=== PATIENT | female | born 1945 | race Caucasian/White ===

== ENCOUNTER 2017-01-10 16:28 | Inpatient (IN) | payer MEDICARE, OTHER ==
[~2017-01-10] VITALS: Ht 160 cm; Wt 80.6 kg
[~2017-01-10 16:28] MED LIST: ALLO300T PO; AMLO10TA2 PO; ATOR40TA78 PO; BENA1TAB11 PO; CEFD300C2 PO; LEVO112T25 PO; METF100010 PO; METO200T3 PO; METR500T PO; ONDA4TAB10 PO; PIOG30TA4 PO; SITA100T PO; SULF1TAB24 PO
[2017-01-10] MEDS ORDERED: DIPH,PERTUSS(ACELL),TET VAC/PF 0.5 ML IM-VACC ONE ×2 (17:00→19:13)
[2017-01-10 17:35] LABS: HEMOGLOBIN 9.3 g/dL (11.7-16.4)
[2017-01-10 17:44] LABS: BLOOD UREA NITROGEN 26 mg/dL (7-18)
[2017-01-10] MEDS ORDERED: PIPERACILLIN/TAZO/PMX 3.375GM 50 ML IVPB ONE (19:00)
[2017-01-10] MEDS ORDERED: HYDROcodone/APAP 5/325 TABLET PO ONE (19:00)
[2017-01-10] MEDS ORDERED: VANCOMYCIN 1,500 MG in SODIUM CHLORIDE 0.9% 250 ML IV ONE (19:00)
[2017-01-10] MEDS ORDERED: VANCOMYCIN PER PHARMACY IV ONE (19:00)
[2017-01-10] MEDS ORDERED: SODIUM CHLORIDE FLUSH 10ML SYR IVF ONE (19:00)
[2017-01-10] MEDS ORDERED: PHARMACOKINETIC CONSULTATION MC ONE (19:00)
[2017-01-10] MEDS ORDERED: PIPERACILLIN/TAZO/PMX 3.375GM 50 ML ONE (19:12)
[2017-01-10] MEDS ORDERED: HYDROcodone/APAP 5/325 TABLET ONE (19:12)
[2017-01-10 21:55] VITALS: BP 115/67
[2017-01-10] MEDS ORDERED: POLYETHYLENE GLYCOL 17 GM PACKET PO PRN (23:30)
[2017-01-10] MEDS ORDERED: LABETALOL 5MG/ML, 20ML IV PRN (23:30)
[2017-01-10] MEDS ORDERED: DOCUSATE 100 MG CAPSULE PO PRN (23:30)
[2017-01-10] MEDS ORDERED: VANCOMYCIN PER PHARMACY MC PRN (23:30)
[2017-01-10] MEDS ORDERED: ACETAMINOPHEN 325 MG TABLET PO PRN (23:30)
[2017-01-10] MEDS ORDERED: ONDANSETRON ODT 4 MG PO PRN (23:30)
[2017-01-10] MEDS ORDERED: BISACODYL 10 MG SUPP PR PRN (23:30)
[2017-01-11] VITALS (13 sets, daily range): BP systolic 84–127; BP diastolic 43–73
[2017-01-11] MEDS: ATORVASTATIN 40 MG TABLET PO SCH ×2 (00:18→21:21)
[2017-01-11] MEDS: PIPERACILLIN/TAZO/PMX 3.375GM 50 ML IV SCH ×4 (00:18→19:46)
[2017-01-11] MEDS: ENOXAPARIN 40 MG/0.4 ML SQ SCH ×2 (00:19→23:01)
[2017-01-11] MEDS: HYDROcodone/APAP 5/325 TABLET PO PRN ×4 (01:38→21:20)
[2017-01-11] MEDS ORDERED: PHARMACOKINETIC CONSULTATION MC ONE (02:30)
[2017-01-11] MEDS ORDERED: PHARMACOKINETIC MONITORING MC PRN (02:30)
[2017-01-11 04:53] LABS: HEMOGLOBIN 7.9 g/dL (11.7-16.4)
[2017-01-11 05:20] LABS: ASPARTATE AMINO TRANSFERASE 21 U/L (15-37); BLOOD UREA NITROGEN 22 mg/dL (7-18)
[2017-01-11] MEDS: INSULIN ASPART 100 UNITS/ML, PEN SQ-INSULIN SCH ×4 (07:00→21:56)
[2017-01-11] MEDS: FUROSEMIDE 20 MG TABLET PO SCH ×2 (08:26→17:00)
[2017-01-11] MEDS: PIOGLITAZONE 15 MG TABLET PO SCH (08:26)
[2017-01-11] MEDS: ALLOPURINOL 300 MG TABLET PO SCH (08:27)
[2017-01-11] MEDS: AMLODIPINE 5 MG TABLET PO SCH (08:27)
[2017-01-11] MEDS: SITAGLIPTIN 100MG TABLET PO SCH (08:27)
[2017-01-11] MEDS: HYDROCHLOROTHIAZIDE 25 MG TABLET PO SCH (08:32)
[2017-01-11] MEDS: BENAZEPRIL 20 MG TABLET PO SCH (08:32)
[2017-01-11] MEDS: METOPROLOL SUCCINATE 50 MG TAB.ER.24H PO SCH ×2 (08:32→21:00)
[2017-01-11] MEDS ORDERED: LEVOTHYROXINE 112 MCG TABLET PO SCH (09:00)
[2017-01-11] MEDS ORDERED: GADOBUTROL 7.5 MMOL/7.5 ML PFS ONE (10:27)
[2017-01-11] MEDS ORDERED: HYDROcodone/APAP 5/325 TABLET ONE (14:54)
[2017-01-11] MEDS ORDERED: LABETALOL 5MG/ML, 20ML IV PRN (20:55)
[2017-01-11] MEDS: VANCOMYCIN 1,500 MG in SODIUM CHLORIDE 0.9% 250 ML IV SCH (21:20)
[2017-01-11] MEDS: TRAZODONE 50MG TABLET PO PRN (23:00)
[2017-01-12 01:00] VITALS: BP 110/65
[2017-01-12 01:06] VITALS: BP 110/65
[2017-01-12] MEDS: PIPERACILLIN/TAZO/PMX 3.375GM 50 ML IV SCH ×4 (01:24→21:46)
[2017-01-12] MEDS: HYDROcodone/APAP 5/325 TABLET PO PRN ×3 (04:28→21:47)
[2017-01-12 05:09] LABS: BLOOD UREA NITROGEN 16 mg/dL (7-18)
[2017-01-12] MEDS: INSULIN ASPART 100 UNITS/ML, PEN SQ-INSULIN SCH ×4 (07:00→21:00)
[2017-01-12 07:38] VITALS: BP 110/67
[2017-01-12] MEDS: FUROSEMIDE 20 MG TABLET PO SCH ×2 (08:05→16:20)
[2017-01-12] MEDS: PIOGLITAZONE 15 MG TABLET PO SCH (08:07)
[2017-01-12] MEDS: HYDROCHLOROTHIAZIDE 25 MG TABLET PO SCH (08:07)
[2017-01-12] MEDS: SITAGLIPTIN 100MG TABLET PO SCH (08:08)
[2017-01-12] MEDS: ALLOPURINOL 300 MG TABLET PO SCH (08:08)
[2017-01-12] MEDS: METOPROLOL SUCCINATE 50 MG TAB.ER.24H PO SCH ×2 (08:09→21:00)
[2017-01-12] MEDS: BENAZEPRIL 20 MG TABLET PO SCH (08:12)
[2017-01-12] MEDS ORDERED: LEVOTHYROXINE 150 MCG TABLET PO SCH (09:00)
[2017-01-12] MEDS: AMLODIPINE 5 MG TABLET PO SCH (09:19)
[2017-01-12 13:39] VITALS: BP 138/72
[2017-01-12 19:58] VITALS: BP 116/70
[2017-01-12] MEDS: VANCOMYCIN 1,500 MG in SODIUM CHLORIDE 0.9% 250 ML IV SCH (21:45)
[2017-01-12] MEDS: ENOXAPARIN 40 MG/0.4 ML SQ SCH (21:46)
[2017-01-12] MEDS: ATORVASTATIN 40 MG TABLET PO SCH (21:46)
[2017-01-12] MEDS: TRAZODONE 50MG TABLET PO PRN (22:01)
[2017-01-13 03:06] VITALS: BP_SYST 110; BP_SYST 112; BP_DIAS 66
[2017-01-13] MEDS: PIPERACILLIN/TAZO/PMX 3.375GM 50 ML IV SCH ×3 (03:31→16:48)
[2017-01-13] MEDS: HYDROcodone/APAP 5/325 TABLET PO PRN ×3 (06:33→20:19)
[2017-01-13] MEDS: LEVOTHYROXINE 150 MCG TABLET PO SCH (06:33)
[2017-01-13] MEDS: INSULIN ASPART 100 UNITS/ML, PEN SQ-INSULIN SCH ×4 (07:00→20:23)
[2017-01-13 08:56] VITALS: BP 98/62
[2017-01-13] MEDS: PIOGLITAZONE 15 MG TABLET PO SCH (09:00)
[2017-01-13] MEDS: ALLOPURINOL 300 MG TABLET PO SCH (09:02)
[2017-01-13] MEDS: SITAGLIPTIN 100MG TABLET PO SCH (09:02)
[2017-01-13] MEDS ORDERED: FUROSEMIDE 20 MG TABLET PO SCH (17:00)
[2017-01-13 17:01] VITALS: BP 90/47
[2017-01-13] MEDS ORDERED: SODIUM CHLORIDE 0.9%, 500ML IVBOLUS ONE (18:00)
[2017-01-13 20:18] VITALS: BP 96/51
[2017-01-13] MEDS: VANCOMYCIN 1,500 MG in SODIUM CHLORIDE 0.9% 250 ML IV SCH (20:19)
[2017-01-13] MEDS: ATORVASTATIN 40 MG TABLET PO SCH (20:19)
[2017-01-13] MEDS: ENOXAPARIN 40 MG/0.4 ML SQ SCH (20:20)
[2017-01-13] MEDS ORDERED: METOPROLOL SUCCINATE 50 MG TAB.ER.24H PO SCH (21:00)
[2017-01-14 04:40] LABS: HEMOGLOBIN 10.4 g/dL (11.7-16.4)
[2017-01-14 04:54] LABS: BLOOD UREA NITROGEN 17 mg/dL (7-18)
[2017-01-14 04:55] VITALS: BP 110/59
[2017-01-14] MEDS: LEVOTHYROXINE 150 MCG TABLET PO SCH (06:16)
[2017-01-14] MEDS: HYDROcodone/APAP 5/325 TABLET PO PRN ×2 (06:16→22:09)
[2017-01-14] MEDS: INSULIN ASPART 100 UNITS/ML, PEN SQ-INSULIN SCH ×4 (07:00→21:00)
[2017-01-14 07:40] VITALS: BP 110/53
[2017-01-14] MEDS ORDERED: MAGNESIUM SULFATE PMX 4GM/100M 100 ML IV ONE (08:30)
[2017-01-14] MEDS: SITAGLIPTIN 100MG TABLET PO SCH (08:38)
[2017-01-14] MEDS: PIOGLITAZONE 15 MG TABLET PO SCH (08:38)
[2017-01-14] MEDS: ALLOPURINOL 300 MG TABLET PO SCH (08:39)
[2017-01-14] MEDS: METOPROLOL SUCCINATE 100 MG TAB.ER.24H PO SCH (09:00)
[2017-01-14] MEDS: HYDROCHLOROTHIAZIDE 25 MG TABLET PO SCH (09:00)
[2017-01-14] MEDS: BENAZEPRIL 20 MG TABLET PO SCH (09:00)
[2017-01-14] MEDS: AMLODIPINE 5 MG TABLET PO SCH (09:00)
[2017-01-14 14:24] VITALS: BP 110/59
[2017-01-14] MEDS: MORPHINE SULFATE 4 MG/ML, 1ML IVPush PRN (14:53)
[2017-01-14] MEDS ORDERED: PROPOFOL 10 MG/ML, 20ML ONE (18:32)
[2017-01-14] MEDS ORDERED: ONDANSETRON 2MG/ML, 2ML ONE (18:32)
[2017-01-14] MEDS ORDERED: FENTANYL PF 250 MCG/5ML ONE ×2 (18:38→18:39)
[2017-01-14] MEDS ORDERED: MIDAZOLAM 1 MG/ML, 2ML ONE (18:38)
[2017-01-14] MEDS ORDERED: BUPIVACAINE/PF 0.5% ONE (18:44)
[2017-01-14] MEDS ORDERED: OXYcodone 5 MG/5 ML ORAL.SOL UDC ONE (19:41)
[2017-01-14 19:46] VITALS: BP 114/62
[2017-01-14] MEDS ORDERED: OXYcodone 5 MG/5 ML ORAL.SOL UDC PO PRN (20:00)
[2017-01-14] MEDS: VANCOMYCIN 1,500 MG in SODIUM CHLORIDE 0.9% 250 ML IV SCH (21:27)
[2017-01-14] MEDS: ATORVASTATIN 40 MG TABLET PO SCH (22:09)
[2017-01-15] MEDS: MORPHINE SULFATE 4 MG/ML, 1ML IVPush PRN ×4 (00:18→19:55)
[2017-01-15 01:49] VITALS: BP 120/64
[2017-01-15] MEDS: HYDROcodone/APAP 5/325 TABLET PO PRN ×4 (04:56→22:59)
[2017-01-15] MEDS: LEVOTHYROXINE 150 MCG TABLET PO SCH (04:56)
[2017-01-15] MEDS: ENOXAPARIN 40 MG/0.4 ML SQ SCH (04:58)
[2017-01-15 05:08] LABS: HEMOGLOBIN 10.5 g/dL (11.7-16.4)
[2017-01-15 05:31] LABS: BLOOD UREA NITROGEN 10 mg/dL (7-18)
[2017-01-15 07:35] VITALS: BP 116/67
[2017-01-15] MEDS: INSULIN ASPART 100 UNITS/ML, PEN SQ-INSULIN SCH ×4 (07:38→21:00)
[2017-01-15] MEDS: PIOGLITAZONE 15 MG TABLET PO SCH (09:46)
[2017-01-15] MEDS: HYDROCHLOROTHIAZIDE 25 MG TABLET PO SCH (09:46)
[2017-01-15] MEDS: SITAGLIPTIN 100MG TABLET PO SCH (09:47)
[2017-01-15] MEDS: AMLODIPINE 5 MG TABLET PO SCH (09:47)
[2017-01-15] MEDS: METOPROLOL SUCCINATE 100 MG TAB.ER.24H PO SCH (09:47)
[2017-01-15] MEDS: ALLOPURINOL 300 MG TABLET PO SCH (09:48)
[2017-01-15] MEDS: BENAZEPRIL 20 MG TABLET PO SCH (09:48)
[2017-01-15] MEDS ORDERED: DAPTOMYCIN IVPB SCH (11:30)
[2017-01-15] MEDS ORDERED: SODIUM CHLORIDE 0.9% IVPB SCH (11:30)
[2017-01-15 13:13] VITALS: BP 91/49
[2017-01-15 19:43] VITALS: BP 101/39
[2017-01-15 19:53] VITALS: BP 98/58
[2017-01-16 03:49] VITALS: BP 115/55
[2017-01-16 04:29] LABS: HEMOGLOBIN 10.4 g/dL (11.7-16.4)
[2017-01-16 04:38] LABS: BLOOD UREA NITROGEN 17 mg/dL (7-18)
[2017-01-16 04:42] LABS: ASPARTATE AMINO TRANSFERASE 16 U/L (15-37)
[2017-01-16 04:48] LABS: DIFF TOTAL CELLS COUNTED 100 CELL DIFF
[2017-01-16 04:50] LABS: ANISOCYTOSIS 1+; OVALOCYTES 1+; POLYCHROMASIA 1+
[2017-01-16 04:51] LABS: VERIFY COUNTS? YES
[2017-01-16] MEDS: LEVOTHYROXINE 150 MCG TABLET PO SCH (06:02)
[2017-01-16] MEDS: MORPHINE SULFATE 4 MG/ML, 1ML IVPush PRN (06:23)
[2017-01-16] MEDS: INSULIN ASPART 100 UNITS/ML, PEN SQ-INSULIN SCH ×4 (07:00→20:43)
[2017-01-16 07:15] VITALS: BP 104/53
[2017-01-16] MEDS ORDERED: LIDOCAINE 2%, 20ML ONE (08:48)
[2017-01-16] MEDS: PIOGLITAZONE 15 MG TABLET PO SCH (09:00)
[2017-01-16] MEDS: HYDROCHLOROTHIAZIDE 25 MG TABLET PO SCH (09:00)
[2017-01-16] MEDS: SITAGLIPTIN 100MG TABLET PO SCH (09:00)
[2017-01-16] MEDS: AMLODIPINE 5 MG TABLET PO SCH (09:00)
[2017-01-16] MEDS: ALLOPURINOL 300 MG TABLET PO SCH (09:00)
[2017-01-16] MEDS: METOPROLOL SUCCINATE 100 MG TAB.ER.24H PO SCH (09:00)
[2017-01-16] MEDS: BENAZEPRIL 20 MG TABLET PO SCH (09:00)
[2017-01-16] MEDS ORDERED: MIDAZOLAM 1 MG/ML, 5ML ONE (09:06)
[2017-01-16] MEDS ORDERED: FENTANYL PF 100 MCG/2ML ONE (09:07)
[2017-01-16] MEDS ORDERED: FLUMAZENIL 0.1 MG/1 ML, 5ML ONE (09:07)
[2017-01-16] MEDS ORDERED: NALOXONE 1 MG/ML, 2ML ONE (09:07)
[2017-01-16 10:20] VITALS: BP 108/57
[2017-01-16] MEDS: HYDROcodone/APAP 5/325 TABLET PO PRN ×3 (10:29→20:43)
[2017-01-16] MEDS: DAPTOMYCIN 500 MG in SODIUM CHLORIDE 0.9% 100 ML IVPB SCH (13:30)
[2017-01-16 14:15] VITALS: BP 105/54
[2017-01-16] MEDS: ENOXAPARIN 40 MG/0.4 ML SQ SCH (14:48)
[2017-01-16 19:32] VITALS: BP 115/59
[2017-01-17 03:15] VITALS: BP 126/62
[2017-01-17] MEDS: LEVOTHYROXINE 150 MCG TABLET PO SCH (05:51)
[2017-01-17] MEDS: HYDROcodone/APAP 5/325 TABLET PO PRN (05:51)
[2017-01-17] MEDS ORDERED: METO-95 PO (06:35)
[2017-01-17] MEDS ORDERED: DAPT500V6 IV (06:35)
[2017-01-17] MEDS: INSULIN ASPART 100 UNITS/ML, PEN SQ-INSULIN SCH ×2 (07:00→11:00)
[2017-01-17 07:16] VITALS: BP 121/62
[2017-01-17] MEDS: ALLOPURINOL 300 MG TABLET PO SCH (08:58)
[2017-01-17] MEDS: SITAGLIPTIN 100MG TABLET PO SCH (08:58)
[2017-01-17] MEDS: METOPROLOL SUCCINATE 100 MG TAB.ER.24H PO SCH (08:58)
[2017-01-17] MEDS: AMLODIPINE 5 MG TABLET PO SCH (08:59)
[2017-01-17] MEDS: HYDROCHLOROTHIAZIDE 25 MG TABLET PO SCH (09:00)
[2017-01-17] MEDS: PIOGLITAZONE 15 MG TABLET PO SCH (09:02)
[2017-01-17] MEDS: BENAZEPRIL 20 MG TABLET PO SCH (09:02)
[2017-01-17] MEDS ORDERED: LEVO125T5 PO (10:23)
[2017-01-17] MEDS ORDERED: DAPTOMYCIN 500 MG in SODIUM CHLORIDE 0.9% 100 ML IVPB SCH (11:30)
[2017-01-17] MEDS: DAPTOMYCIN 500 MG in SODIUM CHLORIDE 0.9% 100 ML IVPB SCH (12:04)
[2017-01-17 12:48] VITALS: BP 106/46
== END 2017-01-17 13:40 | disposition home health service (06) | DRG 616 ==
LOC: ED 19:04 → EDIP 20:20 → 3NW 21:49
PROVIDERS: ADMIT Internal Medicine; ATTEND Internal Medicine
PROC: 30233N1 Transfusion of Nonautologous Red Blood Cells into Peripheral Vein, Percutaneous Approach (ICD-10-PCS; 2017-01-11)
PROC: 0Y6P0Z1 Detachment at Right 1st Toe, High, Open Approach (ICD-10-PCS; principal; 2017-01-14 18:30)
PROC: 02HV33Z Insertion of Infusion Device into Superior Vena Cava, Percutaneous Approach (ICD-10-PCS; 2017-01-16)
PROC: B5181ZA Fluoroscopy of Superior Vena Cava using Low Osmolar Contrast, Guidance (ICD-10-PCS; 2017-01-16)
DX: E11.69 Type 2 diabetes mellitus with other specified complication (principal); E43 Unspecified severe protein-calorie malnutrition; M86.8X7 Other osteomyelitis, ankle and foot; E87.2 Acidosis; C78.7 Secondary malignant neoplasm of liver and intrahepatic bile duct; C79.51 Secondary malignant neoplasm of bone; E11.621 Type 2 diabetes mellitus with foot ulcer; L03.031 Cellulitis of right toe; B95.62 Methicillin resistant Staphylococcus aureus infection as the cause of diseases classified elsewhere; D64.89 Other specified anemias; B95.2 Enterococcus as the cause of diseases classified elsewhere; D53.9 Nutritional anemia, unspecified; D63.8 Anemia in other chronic diseases classified elsewhere; E03.9 Hypothyroidism, unspecified; E78.00 Pure hypercholesterolemia, unspecified; E78.5 Hyperlipidemia, unspecified; F12.90 Cannabis use, unspecified, uncomplicated; I10 Essential (primary) hypertension; T45.1X5A Adverse effect of antineoplastic and immunosuppressive drugs, initial encounter; Z79.2 Long term (current) use of antibiotics; Z68.31 Body mass index [BMI] 31.0-31.9, adult; Z79.899 Other long term (current) drug therapy; Z80.3 Family history of malignant neoplasm of breast; Z87.891 Personal history of nicotine dependence; Z89.411 Acquired absence of right great toe; Z90.13 Acquired absence of bilateral breasts and nipples; Z90.89 Acquired absence of other organs; Z90.49 Acquired absence of other specified parts of digestive tract; Z90.710 Acquired absence of both cervix and uterus; Z82.49 Family history of ischemic heart disease and other diseases of the circulatory system
CPT/HCPCS: 36415; 36558; 76937; 77001; 80048; 80053; 80202; 82040; 82550; 82962; 83036; 83605; 83735; 84100; 84145; 84439; 84443; 85025; 85610; 85651; 85730; 86140; 86850; 86900; 86923; 87040; 87070; 87077; 87186; 87205; 88305; 88311; 90471; 90715; 93005; 93922; 93926; 96365; 96375; 99156; 99157; A9585; J0878; J1650; J1815; J2250; J2405; J2543; J2704; J3010; J3370; J3490; C1750; J2310; J3475; J7040; J7050; P9040

== ENCOUNTER → 2017-02-24 | Outpatient (CLI) | payer MEDICARE, OTHER ==
[~2017-02-24] MED LIST changes: -CEFD300C2 PO; +CEFD300C37 PO; +DAPT500V6 IV; +LEVO125T5 PO; +METO-95 PO; +OMNIPAQUE 350 MG/ML, 100ML BOTTLE ONE
== END | disposition home or self-care (01) ==
LOC: CFH 10:56
PROVIDERS: ATTEND Internal Medicine Hematology & Oncology
DX: C79.51 Secondary malignant neoplasm of bone (principal); C50.911 Malignant neoplasm of unspecified site of right female breast; C78.7 Secondary malignant neoplasm of liver and intrahepatic bile duct; I70.0 Atherosclerosis of aorta; K80.20 Calculus of gallbladder without cholecystitis without obstruction; N28.1 Cyst of kidney, acquired; M48.06 Spinal stenosis, lumbar region
CPT/HCPCS: 71260; 74177; Q9967

== ENCOUNTER → 2017-02-24 | Outpatient (CLI) | payer MEDICARE, OTHER ==
[~2017-02-24] MED LIST changes: -OMNIPAQUE 350 MG/ML, 100ML BOTTLE ONE
== END | disposition home or self-care (01) ==
LOC: PETCFH 10:46
PROVIDERS: ATTEND Internal Medicine Hematology & Oncology
DX: C79.51 Secondary malignant neoplasm of bone (principal); C50.911 Malignant neoplasm of unspecified site of right female breast; C78.7 Secondary malignant neoplasm of liver and intrahepatic bile duct
CPT/HCPCS: 78306; A9503

== ENCOUNTER → 2017-02-27 | Outpatient (CLI) | payer MEDICARE, OTHER | END | disposition home or self-care (01) | LOC: CFH 09:12 | PROVIDERS: ATTEND Internal Medicine Hematology & Oncology | DX: Z13.820 Encounter for screening for osteoporosis (principal); C50.911 Malignant neoplasm of unspecified site of right female breast; C79.51 Secondary malignant neoplasm of bone; C78.7 Secondary malignant neoplasm of liver and intrahepatic bile duct; M81.0 Age-related osteoporosis without current pathological fracture | CPT/HCPCS: 77080 ==

== ENCOUNTER 2017-03-06 10:39 | Day surgery (SDC) | payer MEDICARE, OTHER ==
[~2017-03-06] VITALS: Ht 160 cm; Wt 72.7 kg
[2017-03-06 11:45] VITALS: BP 159/84
[2017-03-06] MEDS ORDERED: SODIUM CHLORIDE 0.9% 1,000 ML IV SCH (11:45)
[2017-03-06] MEDS ORDERED: LIDOCAINE 1%, 20ML ONE (11:56)
[2017-03-06] MEDS ORDERED: MIDAZOLAM 1 MG/ML, 5ML ONE (12:03)
[2017-03-06] MEDS ORDERED: FENTANYL PF 100 MCG/2ML ONE (12:04)
== END 2017-03-06 13:45 | disposition home or self-care (01) ==
LOC: OUT 10:39
PROVIDERS: ATTEND Internal Medicine Infectious Disease
DX: Z45.2 Encounter for adjustment and management of vascular access device (principal); Z79.2 Long term (current) use of antibiotics; I10 Essential (primary) hypertension; E11.9 Type 2 diabetes mellitus without complications; Z79.01 Long term (current) use of anticoagulants; Z85.05 Personal history of malignant neoplasm of liver; F12.10 Cannabis abuse, uncomplicated; Z86.14 Personal history of Methicillin resistant Staphylococcus aureus infection; E78.5 Hyperlipidemia, unspecified; Z85.3 Personal history of malignant neoplasm of breast; E03.9 Hypothyroidism, unspecified; D64.9 Anemia, unspecified; Z87.891 Personal history of nicotine dependence
CPT/HCPCS: 36589; 77001; 99156; 99157; J2250; J3010; J3490; J7030

== ENCOUNTER → 2017-06-26 | Outpatient (CLI) | payer MEDICARE, OTHER ==
[~2017-06-26] MED LIST changes: +ANAS1TAB PO; +ASPI-621 PO; +CARV6.2512 PO; +HYDR-3237 PO; -LEVO112T25 PO; +LEVO112T41 PO; +LISI-167 PO; +TRAZ50TA18 PO
== END | disposition home or self-care (01) ==
LOC: PETCFH 08:44
PROVIDERS: ATTEND Internal Medicine Hematology & Oncology
DX: C79.51 Secondary malignant neoplasm of bone (principal); C50.911 Malignant neoplasm of unspecified site of right female breast
CPT/HCPCS: 78306; A9503

== ENCOUNTER → 2017-06-26 | Outpatient (CLI) | payer MEDICARE, OTHER ==
[~2017-06-26] MED LIST changes: -METO200T3 PO; +METO200T5 PO; +OMNIPAQUE 350 MG/ML, 100ML BOTTLE ONE
== END | disposition home or self-care (01) ==
LOC: CFH 08:41
PROVIDERS: ATTEND Internal Medicine Hematology & Oncology
DX: C79.51 Secondary malignant neoplasm of bone (principal); C50.911 Malignant neoplasm of unspecified site of right female breast; M85.68 Other cyst of bone, other site; R91.1 Solitary pulmonary nodule; I25.10 Atherosclerotic heart disease of native coronary artery without angina pectoris; I70.0 Atherosclerosis of aorta; N28.1 Cyst of kidney, acquired; K76.89 Other specified diseases of liver; K80.20 Calculus of gallbladder without cholecystitis without obstruction
CPT/HCPCS: 71260; 74177; 82565; Q9967

== ENCOUNTER → 2017-11-05 | Outpatient (CLI) | payer MEDICARE, OTHER ==
[~2017-11-05] MED LIST changes: -OMNIPAQUE 350 MG/ML, 100ML BOTTLE ONE
== END | disposition home or self-care (01) ==
LOC: PETCFH 11:40
PROVIDERS: ATTEND Internal Medicine Hematology & Oncology
DX: C50.911 Malignant neoplasm of unspecified site of right female breast (principal); C79.51 Secondary malignant neoplasm of bone; Z85.3 Personal history of malignant neoplasm of breast
CPT/HCPCS: 78306; 82565; A9503

== ENCOUNTER → 2017-11-05 | Outpatient (CLI) | payer MEDICARE, OTHER ==
[~2017-11-05] MED LIST changes: +OMNIPAQUE 350 MG/ML, 100ML BOTTLE ONE
== END | disposition home or self-care (01) ==
LOC: CFH 11:41
PROVIDERS: ATTEND Internal Medicine Hematology & Oncology
DX: C78.7 Secondary malignant neoplasm of liver and intrahepatic bile duct (principal); C50.911 Malignant neoplasm of unspecified site of right female breast; C79.89 Secondary malignant neoplasm of other specified sites; R91.8 Other nonspecific abnormal finding of lung field; K57.30 Diverticulosis of large intestine without perforation or abscess without bleeding; K80.20 Calculus of gallbladder without cholecystitis without obstruction; Z90.710 Acquired absence of both cervix and uterus
CPT/HCPCS: 71260; 74177; Q9967

== ENCOUNTER → 2018-02-11 | Outpatient (CLI) | payer MEDICARE, OTHER ==
[~2018-02-11] MED LIST changes: +METO200T47 PO; -METO200T5 PO; -OMNIPAQUE 350 MG/ML, 100ML BOTTLE ONE
== END ==
LOC: RAD 13:07
PROVIDERS: ATTEND Internal Medicine Hematology & Oncology
DX: I21.9 Acute myocardial infarction, unspecified (principal); C50.911 Malignant neoplasm of unspecified site of right female breast
CPT/HCPCS: 93005

== ENCOUNTER → 2018-02-26 | Outpatient (CLI) | payer MEDICARE, OTHER | END | disposition home or self-care (01) | LOC: STAR 13:18 | PROVIDERS: ATTEND Family Medicine | DX: I25.2 Old myocardial infarction (principal); C50.911 Malignant neoplasm of unspecified site of right female breast; C78.7 Secondary malignant neoplasm of liver and intrahepatic bile duct; C79.51 Secondary malignant neoplasm of bone; E83.51 Hypocalcemia; J15.9 Unspecified bacterial pneumonia; E79.0 Hyperuricemia without signs of inflammatory arthritis and tophaceous disease; G89.3 Neoplasm related pain (acute) (chronic); G62.0 Drug-induced polyneuropathy; M86.671 Other chronic osteomyelitis, right ankle and foot; G93.41 Metabolic encephalopathy; R19.7 Diarrhea, unspecified; D70.1 Agranulocytosis secondary to cancer chemotherapy; E55.9 Vitamin D deficiency, unspecified | CPT/HCPCS: 93005 ==

== ENCOUNTER → 2018-04-08 | Outpatient (CLI) | payer MEDICARE, OTHER | END | disposition home or self-care (01) | LOC: STAR 12:23 | PROVIDERS: ATTEND Internal Medicine Hematology & Oncology | DX: Z01.818 Encounter for other preprocedural examination (principal); C50.911 Malignant neoplasm of unspecified site of right female breast; C79.51 Secondary malignant neoplasm of bone; C78.7 Secondary malignant neoplasm of liver and intrahepatic bile duct; E11.9 Type 2 diabetes mellitus without complications; I70.0 Atherosclerosis of aorta | CPT/HCPCS: 93005 ==

== ENCOUNTER → 2018-04-27 | Outpatient (CLI) | payer MEDICARE, OTHER | END | disposition home or self-care (01) | LOC: STAR 13:47 | PROVIDERS: ATTEND Internal Medicine Hematology & Oncology | DX: C50.911 Malignant neoplasm of unspecified site of right female breast (principal); I21.19 ST elevation (STEMI) myocardial infarction involving other coronary artery of inferior wall | CPT/HCPCS: 93005 ==

== ENCOUNTER → 2018-05-11 | Outpatient (CLI) | payer MEDICARE, OTHER ==
[~2018-05-11] MED LIST changes: +TRAZ-136 PO; -TRAZ50TA18 PO
== END | disposition home or self-care (01) ==
LOC: CARD 12:57
PROVIDERS: ATTEND Internal Medicine Hematology & Oncology
DX: C50.911 Malignant neoplasm of unspecified site of right female breast (principal); I25.2 Old myocardial infarction; R94.31 Abnormal electrocardiogram [ECG] [EKG]; E55.9 Vitamin D deficiency, unspecified; D70.1 Agranulocytosis secondary to cancer chemotherapy
CPT/HCPCS: 93005

== ENCOUNTER → 2018-06-30 | Outpatient (CLI) | payer MEDICARE, OTHER ==
[~2018-06-30] MED LIST changes: -AMLO10TA2 PO; +AMLO10TA6 PO
== END | disposition home or self-care (01) ==
LOC: CFH 08:48
PROVIDERS: ATTEND Internal Medicine Cardiovascular Disease
DX: I07.1 Rheumatic tricuspid insufficiency (principal); I34.8 Other nonrheumatic mitral valve disorders; I42.9 Cardiomyopathy, unspecified; E78.5 Hyperlipidemia, unspecified; E11.9 Type 2 diabetes mellitus without complications; F17.210 Nicotine dependence, cigarettes, uncomplicated; Z85.3 Personal history of malignant neoplasm of breast
CPT/HCPCS: 93306

== ENCOUNTER → 2018-07-09 | Outpatient (CLI) | payer MEDICARE, OTHER | END | disposition home or self-care (01) | LOC: STAR 13:28 | PROVIDERS: ATTEND Internal Medicine Hematology & Oncology | DX: C50.911 Malignant neoplasm of unspecified site of right female breast (principal); C78.7 Secondary malignant neoplasm of liver and intrahepatic bile duct; C79.51 Secondary malignant neoplasm of bone; E55.9 Vitamin D deficiency, unspecified; M86.671 Other chronic osteomyelitis, right ankle and foot | CPT/HCPCS: 93005 ==

== ENCOUNTER → 2018-07-22 | Outpatient (CLI) | payer MEDICARE, OTHER | END | disposition home or self-care (01) | LOC: STAR 13:14 | PROVIDERS: ATTEND Internal Medicine Hematology & Oncology | DX: Z01.818 Encounter for other preprocedural examination (principal); C50.911 Malignant neoplasm of unspecified site of right female breast; I25.2 Old myocardial infarction; I51.7 Cardiomegaly | CPT/HCPCS: 93005 ==

== ENCOUNTER 2018-07-28 08:23 | Day surgery (SDC) | payer MEDICARE, OTHER ==
[~2018-07-28] VITALS: Ht 157.5 cm; Wt 64.5 kg
[2018-07-28] MEDS ORDERED: CEFAZOLIN PMX 1GM/50ML 50 ML IV ONE (09:00)
[2018-07-28] MEDS ORDERED: SODIUM CHLORIDE 0.9% 1,000 ML IV SCH (09:04)
[2018-07-28 09:31] VITALS: BP 110/72
[2018-07-28] MEDS ORDERED: PARO10TA56 PO (09:56)
[2018-07-28] MEDS ORDERED: DENO120V SQ (09:56)
[2018-07-28] MEDS ORDERED: ATOR40TA78 PO (09:56)
[2018-07-28] MEDS ORDERED: LEVO100T5 PO (09:56)
[2018-07-28] MEDS ORDERED: [UNRECOGNIZED DRUG - CODE] IV (09:56)
[2018-07-28] MEDS ORDERED: B 12 PO (09:56)
[2018-07-28] MEDS ORDERED: FLUD0.1T PO (09:56)
[2018-07-28] MEDS ORDERED: UBID100C41 PO (09:59)
[2018-07-28] MEDS ORDERED: CALC-31 PO (09:59)
[2018-07-28] MEDS ORDERED: MAGN400T36 PO (09:59)
[2018-07-28] MEDS ORDERED: LIDOCAINE/PF 1%, 30ML ONE (10:27)
[2018-07-28] MEDS ORDERED: MIDAZOLAM 1 MG/ML, 5ML ONE (10:53)
[2018-07-28] MEDS ORDERED: FENTANYL PF 100 MCG/2ML ONE (10:53)
[2018-07-28] MEDS ORDERED: FLUMAZENIL 0.1 MG/1 ML, 5ML ONE (10:54)
[2018-07-28] MEDS ORDERED: NALOXONE 1 MG/ML, 2ML ONE (10:54)
== END 2018-07-28 17:00 | disposition home or self-care (01) ==
LOC: OUT 08:23
PROVIDERS: ATTEND Internal Medicine Hematology & Oncology
DX: Z45.2 Encounter for adjustment and management of vascular access device (principal); C50.919 Malignant neoplasm of unspecified site of unspecified female breast; F32.9 Major depressive disorder, single episode, unspecified; I25.10 Atherosclerotic heart disease of native coronary artery without angina pectoris; I10 Essential (primary) hypertension; E11.9 Type 2 diabetes mellitus without complications; E03.9 Hypothyroidism, unspecified; Z90.13 Acquired absence of bilateral breasts and nipples; Z90.710 Acquired absence of both cervix and uterus; Z98.890 Other specified postprocedural states; Z98.42 Cataract extraction status, left eye; Z98.41 Cataract extraction status, right eye; Z87.891 Personal history of nicotine dependence
CPT/HCPCS: 36561; 76937; 77001; 99156; 99157; C1788; C1894; J0690; J1642; J2250; J3010; J3490; J7030; J2310

== ENCOUNTER → 2018-08-12 | Outpatient (CLI) | payer MEDICARE, OTHER ==
[~2018-08-12] MED LIST changes: +B 12 PO; +CALC-31 PO; +DENO120V SQ; +FLUD0.1T PO; +LEVO100T5 PO; +MAGN400T36 PO; +PARO10TA56 PO; +UBID100C41 PO; +[UNRECOGNIZED DRUG - CODE] IV
== END | disposition home or self-care (01) ==
LOC: RAD 13:20
PROVIDERS: ATTEND Internal Medicine Hematology & Oncology
DX: I25.2 Old myocardial infarction (principal); C50.911 Malignant neoplasm of unspecified site of right female breast
CPT/HCPCS: 93005

== ENCOUNTER → 2018-08-31 | Outpatient (CLI) | payer MEDICARE, OTHER | END | disposition home or self-care (01) | LOC: STAR 15:36 | PROVIDERS: ATTEND Internal Medicine Hematology & Oncology | DX: Z01.818 Encounter for other preprocedural examination (principal); C50.911 Malignant neoplasm of unspecified site of right female breast | CPT/HCPCS: 93005 ==

== ENCOUNTER → 2018-09-07 | Outpatient (CLI) | payer MEDICARE, OTHER ==
[~2018-09-07] MED LIST changes: +OMNIPAQUE 350 MG/ML, 100ML BOTTLE ONE
== END | disposition home or self-care (01) ==
LOC: RAD 09:16
PROVIDERS: ATTEND Internal Medicine Hematology & Oncology
DX: C79.51 Secondary malignant neoplasm of bone (principal); C78.7 Secondary malignant neoplasm of liver and intrahepatic bile duct; C50.911 Malignant neoplasm of unspecified site of right female breast; N28.1 Cyst of kidney, acquired
CPT/HCPCS: 36415; 71260; 74177; 78306; 82565; A9503; Q9967

== ENCOUNTER 2018-09-10 15:06 | Emergency (ER) | payer MEDICARE, OTHER ==
[~2018-09-10] VITALS: Ht 160 cm; Wt 65.2 kg
[~2018-09-10 15:06] MED LIST changes: -ASPI-621 PO; +ASPI81TA45 PO; -OMNIPAQUE 350 MG/ML, 100ML BOTTLE ONE; -TRAZ-136 PO; +TRAZ50TA66 PO
[2018-09-10 16:07] LABS: MEAN CORPUSCULAR HGB CONC 32.6 g/dL (32.4-35.8); MEAN CORPUSCULAR VOLUME 98.2 fL (80-100); MEAN PLATELET VOLUME 7.7 fL (7.4-10.4); PLATELET COUNT 233 x10^3/uL (130-400); RED CELL DISTRIBUTION WIDTH 19.3 % (9.6-15.2)
[2018-09-10 16:09] LABS: ANION GAP 5 mmol/L (5-15); CALCIUM 9.6 mg/dL (8.5-10.1); CHLORIDE 106 mmol/L (98-107)
[2018-09-10 16:12] LABS: ALANINE AMINOTRANSFERASE 26 U/L (12-78); ALKALINE PHOSPHATASE 253 U/L (45-117); BILIRUBIN,TOTAL 0.4 mg/dL (0.2-1.0); TOTAL PROTEIN 6.5 g/dL (6.4-8.2)
[2018-09-10 16:22] LABS: MD YES
[2018-09-10 16:37] LABS: BAND#(MANUAL) 0.26 x10^3/uL; BANDS%(MANUAL) 9 % (0-7); BASOS#(MANUAL) 0.09 x10^3/uL (0-0.1); BASOS% (MANUAL) 3 % (0-1); LYMPH#(MANUAL) 1.02 x10^3/uL (1-3.4); LYMPHS% (MANUAL) 35 % (22-44); MONOS#(MANUAL) 0.73 x10^3/uL (0.3-2.7); MONOS% (MANUAL) 25 % (2-9); NRBC % (MANUAL) 10 % (0-1); REACTIVE LYMPHS # (MANUAL) 0.15 x10^3/uL (0-0); REACTIVE LYMPHS % (MANUAL) 5 % (0-0); SEG#(MANUAL) 0.67 x10^3/uL (1.8-6.8); SEGS% (MANUAL) 23 % (42-75)
[2018-09-10 16:40] LABS: POLYCHROMASIA 1+
[2018-09-10 16:41] LABS: OVALOCYTES 1+; TEAR DROPS 1+
[2018-09-10 16:42] LABS: <PLATELET ESTIMATE> ADEQUATE; <PLT MORPHOLOGY> NORMAL PLT MORPH
[2018-09-10 17:32] LABS: RAPID INFLUENZA A Negative (Negative); RAPID INFLUENZA B Negative (Negative)
[2018-09-10 17:36] VITALS: BP 128/45
[2018-09-10 18:28] LABS: MICROSCOPIC INDICATED
[2018-09-10 18:29] LABS: CULTURE INDICATED? YES
[2018-09-10] MEDS ORDERED: CEFDINIR 300 MG CAPSULE ONE (19:13)
[2018-09-10] MEDS ORDERED: CEFDINIR 300 MG CAPSULE PO ONE (19:30)
== END 2018-09-10 19:52 | disposition home or self-care (01) ==
LOC: ED 18:52
DX: N30.00 Acute cystitis without hematuria (principal); R53.1 Weakness; E11.9 Type 2 diabetes mellitus without complications; I10 Essential (primary) hypertension; E03.9 Hypothyroidism, unspecified; Z85.3 Personal history of malignant neoplasm of breast
CPT/HCPCS: 36415; 71045; 80053; 81001; 83690; 85025; 87077; 87086; 87186; 87400; 99284

== ENCOUNTER → 2018-09-23 | Outpatient (CLI) | payer MEDICARE, OTHER | END | disposition home or self-care (01) | LOC: STAR 14:48 | PROVIDERS: ATTEND Internal Medicine Hematology & Oncology | DX: Z01.818 Encounter for other preprocedural examination (principal); C50.911 Malignant neoplasm of unspecified site of right female breast | CPT/HCPCS: 93005 ==

== ENCOUNTER → 2018-10-14 | Outpatient (CLI) | payer MEDICARE, OTHER | END | disposition home or self-care (01) | LOC: STAR 12:46 | PROVIDERS: ATTEND Internal Medicine Hematology & Oncology | DX: Z01.818 Encounter for other preprocedural examination (principal); C50.911 Malignant neoplasm of unspecified site of right female breast | CPT/HCPCS: 93005 ==

== ENCOUNTER 2018-11-04 12:51 | Outpatient (CLI) | payer MEDICARE, OTHER ==
[~2018-11-04 12:51] MED LIST changes: -AMLO10TA6 PO; +AMLO10TA8 PO
== END 2018-11-04 23:59 | disposition home or self-care (01) ==
LOC: CLISVCS 12:51
PROVIDERS: ATTEND Internal Medicine Hematology & Oncology
DX: C50.911 Malignant neoplasm of unspecified site of right female breast (principal); R94.31 Abnormal electrocardiogram [ECG] [EKG]
CPT/HCPCS: 93005

== ENCOUNTER → 2018-11-24 | Outpatient (CLI) | payer MEDICARE, OTHER | END | disposition home or self-care (01) | LOC: STAR 12:05 | PROVIDERS: ATTEND Internal Medicine Hematology & Oncology | DX: Z13.1 Encounter for screening for diabetes mellitus (principal); R94.31 Abnormal electrocardiogram [ECG] [EKG]; C50.911 Malignant neoplasm of unspecified site of right female breast | CPT/HCPCS: 93005 ==

== ENCOUNTER 2018-12-14 08:46 | Emergency (ER) | payer MEDICARE, OTHER ==
[~2018-12-14] VITALS: Ht 160 cm; Wt 70.0 kg
--- NOTE | 2018-12-14 08:59 | NUR ---
BIB [facility] COMPLAINING OF A PRESSURE "GAS BUBBLE" IN RLQ. NOT PASSING GAS. PT DOES NOT USE OXYGEN AT HOME BUT WAS 89% ROOM AIR WITH EMS. ON ARRIVAL TO ED, CHECKED RA AND PT WAS 86-87% PT PLACED ON 2LNC INCREASED TO 98%
[2018-12-14] MEDS ORDERED: SODIUM CHLORIDE FLUSH 10ML SYR IVF ONE (09:30)
[2018-12-14] MEDS ORDERED: ONDANSETRON 2MG/ML, 2ML IVPush ONE (09:30)
[2018-12-14] MEDS ORDERED: MORPHINE SULFATE 4 MG/ML, 1ML IVPush PRN (09:30)
[2018-12-14 09:52] LABS: ALANINE AMINOTRANSFERASE 32 U/L (12-78); ALBUMIN 3.3 g/dL (3.4-5.0); ANION GAP 3 mmol/L (5-15); CALCIUM 9.5 mg/dL (8.5-10.1); CHLORIDE 105 mmol/L (98-107); CREATININE 0.67 mg/dL (0.55-1.02)
[2018-12-14 09:54] LABS: ALKALINE PHOSPHATASE 360 U/L (45-117); BILIRUBIN,TOTAL 0.7 mg/dL (0.2-1.0); TOTAL PROTEIN 6.8 g/dL (6.4-8.2)
[2018-12-14 10:19] LABS: BASOPHILS # (AUTO) 0.04 x10^3/uL (0-0.1); BASOPHILS % (AUTO) 1 % (0-1); EOSINOPHILS # (AUTO) 0.01 x10^3/uL (0-0.4); EOSINOPHILS % (AUTO) 0 % (1-7); LYMPHOCYTES # (AUTO) 0.64 x10^3/uL (1-3.4); LYMPHOCYTES % (AUTO) 13 % (22-44); MD NO; MEAN CORPUSCULAR HEMOGLOBIN 31.9 pg (27.0-34.8); MEAN CORPUSCULAR HGB CONC 32.5 g/dL (32.4-35.8); MEAN CORPUSCULAR VOLUME 98.2 fL (80-100); MEAN PLATELET VOLUME 7.7 fL (7.4-10.4); MONOCYTES # (AUTO) 0.14 x10^3/uL (0.2-0.8); MONOCYTES % (AUTO) 3 % (2-9); NEUTROPHILS # (AUTO) 4.31 x10^3/uL (1.8-6.8); NEUTROPHILS % (AUTO) 84 % (42-75); PLATELET COUNT 192 x10^3/uL (130-400); RED BLOOD COUNT 3.45 x10^6/uL (3.82-5.3); RED CELL DISTRIBUTION WIDTH 19.5 % (9.6-15.2)
--- NOTE | 2018-12-14 10:22 | NUR ---
PT DECLINING PAIN MEDS AT THIS TIME
[2018-12-14] MEDS ORDERED: OMNIPAQUE 350 MG/ML, 100ML BOTTLE ONE (10:28)
[2018-12-14 11:58] LABS: MICROSCOPIC AUTO
[2018-12-14 12:04] LABS: CULTURE INDICATED? YES
[2018-12-14] MEDS ORDERED: CEFTRIAXONE PMX 1GM/50ML 50 ML IV ONE (13:00)
--- NOTE | 2018-12-14 13:24 | NUR ---
REPORT FROM KELSIE REDDY
[2018-12-14] MEDS ORDERED: LIDOCAINE-MPF 1%, 2ML ONE (13:45)
[2018-12-14] MEDS ORDERED: CEFTRIAXONE 1,000 MG IM ONE (14:00)
[2018-12-14 14:02] VITALS: BP 142/56
== END 2018-12-14 14:07 | disposition home or self-care (01) ==
LOC: ED 10:11
DX: K51.90 Ulcerative colitis, unspecified, without complications (principal); N30.00 Acute cystitis without hematuria; K59.00 Constipation, unspecified; K80.20 Calculus of gallbladder without cholecystitis without obstruction; C41.9 Malignant neoplasm of bone and articular cartilage, unspecified; M89.70 Major osseous defect, unspecified site; C79.81 Secondary malignant neoplasm of breast; Z51.11 Encounter for antineoplastic chemotherapy; E03.9 Hypothyroidism, unspecified; E11.9 Type 2 diabetes mellitus without complications; E78.00 Pure hypercholesterolemia, unspecified; Z86.14 Personal history of Methicillin resistant Staphylococcus aureus infection; Z90.710 Acquired absence of both cervix and uterus
CPT/HCPCS: 36415; 71045; 74177; 80053; 81001; 83690; 85025; 87077; 87086; 99284; Q9967; 87186

== ENCOUNTER 2018-12-18 11:10 | Outpatient (CLI) | payer MEDICARE, OTHER | END 2018-12-18 23:59 | disposition home or self-care (01) | LOC: RAD 11:10 | PROVIDERS: ATTEND Internal Medicine Hematology & Oncology | DX: C50.911 Malignant neoplasm of unspecified site of right female breast (principal); C79.51 Secondary malignant neoplasm of bone; E04.1 Nontoxic single thyroid nodule; E03.9 Hypothyroidism, unspecified; E11.9 Type 2 diabetes mellitus without complications; Z90.710 Acquired absence of both cervix and uterus | CPT/HCPCS: 71260; 78306; A9503; J1642 ==

== ENCOUNTER → 2019-01-04 | Outpatient (CLI) | payer MEDICARE, OTHER | END | disposition home or self-care (01) | LOC: STAR 13:07 | PROVIDERS: ATTEND Internal Medicine Hematology & Oncology | DX: Z01.818 Encounter for other preprocedural examination (principal); Z13.1 Encounter for screening for diabetes mellitus; C50.911 Malignant neoplasm of unspecified site of right female breast | CPT/HCPCS: 93005 ==

== ENCOUNTER 2019-01-19 11:13 | Outpatient (CLI) | payer MEDICARE, OTHER ==
[2019-01-19 11:40] LABS: ALANINE AMINOTRANSFERASE 28 U/L (12-78); ALBUMIN 3.4 g/dL (3.4-5.0); ANION GAP 5 mmol/L (5-15); CALCIUM 9.5 mg/dL (8.5-10.1); CHLORIDE 106 mmol/L (98-107); CREATININE 0.69 mg/dL (0.55-1.02)
[2019-01-19 11:43] LABS: ALKALINE PHOSPHATASE 327 U/L (45-117); BILIRUBIN,TOTAL 0.5 mg/dL (0.2-1.0); TOTAL PROTEIN 6.7 g/dL (6.4-8.2)
== END 2019-01-19 23:59 | disposition home or self-care (01) ==
LOC: LAB 11:13
PROVIDERS: ATTEND Nurse Practitioner Family
DX: Z13.1 Encounter for screening for diabetes mellitus (principal); Z13.820 Encounter for screening for osteoporosis; Z51.11 Encounter for antineoplastic chemotherapy; E55.9 Vitamin D deficiency, unspecified; Z85.3 Personal history of malignant neoplasm of breast; Z85.830 Personal history of malignant neoplasm of bone; Z85.05 Personal history of malignant neoplasm of liver
CPT/HCPCS: 36415; 80053; 83735; 84100

== ENCOUNTER → 2019-01-26 | Outpatient (CLI) | payer MEDICARE, OTHER | END | disposition home or self-care (01) | LOC: STAR 15:25 | PROVIDERS: ATTEND Internal Medicine Hematology & Oncology | DX: Z13.1 Encounter for screening for diabetes mellitus (principal); I51.7 Cardiomegaly | CPT/HCPCS: 93005 ==

== ENCOUNTER → 2019-02-16 | Outpatient (CLI) | payer MEDICARE, OTHER | END | disposition home or self-care (01) | LOC: STAR 14:45 | PROVIDERS: ATTEND Internal Medicine Hematology & Oncology | DX: Z13.1 Encounter for screening for diabetes mellitus (principal); C50.911 Malignant neoplasm of unspecified site of right female breast; I21.9 Acute myocardial infarction, unspecified | CPT/HCPCS: 93005 ==

== ENCOUNTER → 2019-03-09 | Outpatient (CLI) | payer MEDICARE, OTHER ==
[~2019-03-09] MED LIST changes: +OMNIPAQUE 350 MG/ML, 100ML BOTTLE ONE
== END | disposition home or self-care (01) ==
LOC: RAD 11:04
PROVIDERS: ATTEND Internal Medicine Hematology & Oncology
DX: Z13.1 Encounter for screening for diabetes mellitus (principal); C79.51 Secondary malignant neoplasm of bone; C50.911 Malignant neoplasm of unspecified site of right female breast; R91.8 Other nonspecific abnormal finding of lung field; R94.31 Abnormal electrocardiogram [ECG] [EKG]
CPT/HCPCS: 71260; 74177; 78306; 93005; A9503; J1642; Q9967

== ENCOUNTER → 2019-04-19 | Outpatient (CLI) | payer MEDICARE, OTHER ==
[~2019-04-19] MED LIST changes: -OMNIPAQUE 350 MG/ML, 100ML BOTTLE ONE
[2019-04-19 14:24] LABS: CHLORIDE 105 mmol/L (98-107)
[2019-04-19 14:28] LABS: MEAN CORPUSCULAR HEMOGLOBIN 31.1 pg (27.0-34.8); MEAN CORPUSCULAR HGB CONC 31.4 g/dL (32.4-35.8); MEAN PLATELET VOLUME 8.7 fL (7.4-10.4); PLATELET COUNT 147 x10^3/uL (130-400); RED BLOOD COUNT 3.05 x10^6/uL (3.82-5.3); RED CELL DISTRIBUTION WIDTH 24.5 % (9.6-15.2)
[2019-04-19 14:34] LABS: ALANINE AMINOTRANSFERASE 34 U/L (12-78); ALBUMIN 3.2 g/dL (3.4-5.0); ALKALINE PHOSPHATASE 713 U/L (45-117); ANION GAP 6 mmol/L (5-15); BILIRUBIN,TOTAL 0.5 mg/dL (0.2-1.0); CALCIUM 9.9 mg/dL (8.5-10.1); TOTAL PROTEIN 6.8 g/dL (6.4-8.2)
[2019-04-19 14:38] LABS: ABSOLUTE RETICS # 0.117 x10^6/uL (0.5-2.5); RED BLOOD COUNT 3.06 x10^6/uL (3.82-5.3); RETICULOCYTE COUNT % 3.83 % (0.5-1.5)
[2019-04-19 14:45] LABS: MD YES
[2019-04-19 14:47] LABS: EOS#(MANUAL) 0.05 x10^3/uL (0.0-0.4); EOS% (MANUAL) 1 % (1-7); LYMPH#(MANUAL) 0.99 x10^3/uL (1-3.4); LYMPHS% (MANUAL) 21 % (22-44); MONOS#(MANUAL) 0.61 x10^3/uL (0.3-2.7); MONOS% (MANUAL) 13 % (2-9); NRBC % (MANUAL) 2 % (0-1); SEG#(MANUAL) 3.06 x10^3/uL (1.8-6.8); SEGS% (MANUAL) 65 % (42-75)
[2019-04-19 14:48] LABS: ANISOCYTOSIS 1+
[2019-04-19 14:49] LABS: HYPOCHROMIA 1+; OVALOCYTES 1+; POLYCHROMASIA 1+
[2019-04-19 14:50] LABS: <PLATELET ESTIMATE> ADEQUATE; TEAR DROPS 1+
[2019-04-19 14:51] LABS: LARGE PLATELETS 1+
== END | disposition home or self-care (01) ==
LOC: LAB 13:52
PROVIDERS: ATTEND Internal Medicine Hematology & Oncology
DX: C78.7 Secondary malignant neoplasm of liver and intrahepatic bile duct (principal); C79.51 Secondary malignant neoplasm of bone; I10 Essential (primary) hypertension; E11.9 Type 2 diabetes mellitus without complications; I25.2 Old myocardial infarction; E78.00 Pure hypercholesterolemia, unspecified; E03.9 Hypothyroidism, unspecified; G89.3 Neoplasm related pain (acute) (chronic); F33.1 Major depressive disorder, recurrent, moderate; M86.671 Other chronic osteomyelitis, right ankle and foot; Z90.710 Acquired absence of both cervix and uterus; Z87.891 Personal history of nicotine dependence; Z85.3 Personal history of malignant neoplasm of breast; Z80.3 Family history of malignant neoplasm of breast
CPT/HCPCS: 36415; 80053; 83010; 83615; 85025; 85045; 85730; 86880

== ENCOUNTER 2019-05-14 15:10 | Outpatient (CLI) | payer MEDICARE, OTHER | END 2019-05-14 23:59 | disposition home or self-care (01) | LOC: RAD 15:10 | PROVIDERS: ATTEND Internal Medicine Hematology & Oncology | DX: Z13.1 Encounter for screening for diabetes mellitus (principal); C79.49 Secondary malignant neoplasm of other parts of nervous system; Z85.3 Personal history of malignant neoplasm of breast | CPT/HCPCS: 70553; A9585 ==

== ENCOUNTER 2019-05-28 07:59 | Outpatient (CLI) | payer MEDICARE, OTHER | END 2019-05-28 23:59 | disposition home or self-care (01) | LOC: PETCFH 07:59 | PROVIDERS: ATTEND Internal Medicine Hematology & Oncology | DX: C78.7 Secondary malignant neoplasm of liver and intrahepatic bile duct (principal); C78.00 Secondary malignant neoplasm of unspecified lung | CPT/HCPCS: 71260; 74177; 78306; A9503; Q9967; 77295; 77300; 77334; 77336; 77387; 77412; G0463 ==